=== PATIENT | male | born 1980 | race Caucasian/White ===

== ENCOUNTER 2017-02-08 19:00 | Emergency (ER) | payer OTHER ==
[~2017-02-08] VITALS: Ht 175.2 cm; Wt 124.7 kg
[~2017-02-08 19:00] MED LIST: AMOXICILLIN500 M2 PO; LISINOPRIL10 M1 PO; PREDNICOT20 MG PO; PREDNISONE10 MG PO; PROAIR HFA0.09 MG/AC IH; ROBITUSSIN AC 110 ML PO; VENTOLIN H0.09 MG/AC INH; VIBRAMYCIN100 MG PO
[2017-02-08] MEDS ORDERED: CLARITIN10 MG PO (19:29)
[2017-02-08] MEDS ORDERED: ROBITUSSIN AC 110 ML PO (19:29)
[2017-02-08] MEDS ORDERED: PREDNISONE10 MG PO (19:29)
[2017-02-08] MEDS ORDERED: FLONASE ALLERG9.9 ML NAS (19:29)
== END 2017-02-08 21:29 | disposition home or self-care (01) ==
LOC: ED 19:00
DX: J20.9 Acute bronchitis, unspecified (principal); J45.909 Unspecified asthma, uncomplicated; R03.0 Elevated blood-pressure reading, without diagnosis of hypertension; F17.200 Nicotine dependence, unspecified, uncomplicated

== ENCOUNTER → 2017-03-22 | Outpatient (CLI) | payer OTHER ==
[~2017-03-22] MED LIST changes: +CLARITIN10 MG PO; +FLONASE ALLERG9.9 ML NAS
[2017-03-22 14:28] LABS: BASO # 0.1 10*3/uL (0.0-0.1); BASO % 0.6 % (0.0-1.0); EOS # 0.2 10*3/uL (0.0-0.4); EOS % 2.2 % (1.0-4.0); HEMATOCRIT 43.4 % (42.0-52.0); HEMOGLOBIN 15.3 g/dl (14.0-18.0); LYMPH # 3.2 10*3/uL (1.3-4.4); MEAN CELL VOLUME 84.1 fl (80.0-94.0); MEAN CORPUSCULAR HGB 29.7 pg (27.0-31.0); MEAN CORPUSCULAR HGB CONC 35.3 g/dl (33.0-37.0); MEAN PLATELET VOLUME 9.2 fl (9.6-12.3); MONO # 0.7 10*3/uL (0.1-1.0); MONO % 7.9 % (3.0-9.0); NEUT # 4.5 10*3/uL (2.3-7.9); NEUT % 51.8 % (47.0-73.0); PLATELET COUNT AUTOMATED 259 10*3/uL (130-400); RED BLOOD COUNT 5.16 10*6/uL (4.50-5.90); RED CELL DISTRI WIDTH 12.9 % (0-14.5); WHITE BLOOD COUNT 8.7 10*3/uL (4.8-10.8)
[2017-03-22 15:25] LABS: ALBUMIN 4.1 gm/dl (3.1-4.5); BUN 18 mg/dl (7-24); CHLORIDE 106 mmol/L (98-107); CREATININE 0.95 mg/dL (0.70-1.30); POTASSIUM 3.9 mmol/L (3.5-5.1); SGOT/AST 30 IU/L (3-35); SODIUM 138 mmol/L (136-145)
[2017-03-22 15:36] LABS: ALKALINE PHOSPHATASE 74 U/L (45-117); SGPT/ALT 50 U/L (12-78); TOTAL PROTEIN 7.6 gm/dL (6.4-8.2)
== END | disposition home or self-care (01) ==
LOC: LAB 13:37
PROVIDERS: Physician Assistant
DX: Z51.81 Encounter for therapeutic drug level monitoring (principal); R94.31 Abnormal electrocardiogram [ECG] [EKG]; E55.9 Vitamin D deficiency, unspecified; Z79.899 Other long term (current) drug therapy

== ENCOUNTER 2017-04-11 17:00 | Emergency (ER) | payer OTHER ==
[~2017-04-11] VITALS: Wt 136.1 kg
[2017-04-11] MEDS ORDERED: PREDNISONE10 MG PO (17:32)
[2017-04-11] MEDS ORDERED: FLONASE ALLERG9.9 ML NAS (17:32)
[2017-04-11] MEDS ORDERED: CLARITIN10 MG PO (17:32)
== END 2017-04-11 17:58 | disposition home or self-care (01) ==
LOC: ED 17:00
DX: J02.9 Acute pharyngitis, unspecified (principal); R03.0 Elevated blood-pressure reading, without diagnosis of hypertension; F17.200 Nicotine dependence, unspecified, uncomplicated; Z79.899 Other long term (current) drug therapy

== ENCOUNTER 2017-08-27 11:49 | Emergency (ER) | payer OTHER ==
[~2017-08-27] VITALS: Ht 175.2 cm; Wt 136.1 kg
== END 2017-08-27 13:08 | disposition home or self-care (01) ==
LOC: ED 11:49
DX: S70.11XA Contusion of right thigh, initial encounter (principal); S80.812A Abrasion, left lower leg, initial encounter; Z79.899 Other long term (current) drug therapy; V09.9XXA Pedestrian injured in unspecified transport accident, initial encounter; Y93.01 Activity, walking, marching and hiking; Y92.89 Other specified places as the place of occurrence of the external cause; Y99.9 Unspecified external cause status

== ENCOUNTER 2017-10-25 17:59 | Emergency (ER) | payer OTHER ==
[~2017-10-25] VITALS: Ht 175.2 cm; Wt 136.1 kg
--- NOTE | ~2017-10-25 | EKG ---
[place], [place] ELECTROCARDIOGRAM REPORT NAME: JOSE DE JESUS LUNA UNIT #: [id number] ROOM: DOCTOR: BRIAN FERNANDEZ MD BIRTHDATE: [birth year] DOS: 10/25/2017 TIME: 1849 hours. FINDINGS: 1. Normal sinus rhythm at 95 beats per minute. 2. The tracing is within normal limits. 3. No previous tracing is available for comparison. BRIAN FERNANDEZ MD CM:EKGRPT:ELECTROCARDIOGRAM REPORT [id number] BRIAN FERNANDEZ MD
[2017-10-25] MEDS ORDERED: FLONASE ALLERG9.9 ML NAS (18:18)
[2017-10-25] MEDS ORDERED: ROBITUSSIN DM 105 ML PO (18:18)
[2017-10-25] MEDS ORDERED: CLARITIN10 MG PO (18:18)
[2017-10-25] MEDS ORDERED: PREDNISONE10 MG PO (18:18)
[2017-10-25 18:22] LABS: BASO # 0.1 10*3/uL (0.0-0.1); BASO % 0.5 % (0.0-1.0); EOS # 0.2 10*3/uL (0.0-0.4); EOS % 1.8 % (1.0-4.0); HEMOGLOBIN 13.8 g/dl (14.0-18.0); LYMPH # 3.1 10*3/uL (1.3-4.4); LYMPH % 28.4 % (27.0-41.0); MEAN CORPUSCULAR HGB 29.7 pg (27.0-31.0); MEAN CORPUSCULAR HGB CONC 34.5 g/dl (33.0-37.0); MONO # 0.5 10*3/uL (0.1-1.0); MONO % 4.9 % (3.0-9.0); NEUT # 6.9 10*3/uL (2.3-7.9); PLATELET COUNT AUTOMATED 286 10*3/uL (130-400); RED BLOOD COUNT 4.65 10*6/uL (4.50-5.90); RED CELL DISTRI WIDTH 13.2 % (0-14.5)
[2017-10-25 18:40] LABS: ALBUMIN 3.7 gm/dl (3.1-4.5); ALKALINE PHOSPHATASE 82 U/L (45-117); BUN 13 mg/dl (7-24); CHLORIDE 109 mmol/L (98-107); CREATININE 1.08 mg/dL (0.70-1.30); POTASSIUM 3.9 mmol/L (3.5-5.1); SGOT/AST 30 IU/L (3-35); SGPT/ALT 48 U/L (12-78); SODIUM 142 mmol/L (136-145); TOTAL PROTEIN 7.3 gm/dL (6.4-8.2)
[2017-10-25 18:41] LABS: TROPONIN I < 0.015 ng/ml (<0.045)
== END 2017-10-25 19:06 | disposition home or self-care (01) ==
LOC: ED 17:59
PROVIDERS: Nurse Practitioner Family
DX: J20.9 Acute bronchitis, unspecified (principal); R03.0 Elevated blood-pressure reading, without diagnosis of hypertension; F17.200 Nicotine dependence, unspecified, uncomplicated; J45.909 Unspecified asthma, uncomplicated

== ENCOUNTER 2020-02-19 22:56 | Emergency (ER) | payer OTHER ==
[~2020-02-19] VITALS: Ht 175.2 cm; Wt 136.1 kg
[~2020-02-19 22:56] MED LIST changes: +ROBITUSSIN DM 105 ML PO
[2020-02-20 00:31] LABS: BILIRUBIN NEGATIVE; BLOOD NEGATIVE (NEGATIVE); CLARITY CLEAR (CLEAR); COLOR YELLOW (YELLOW); GLUCOSE NEGATIVE; KETONE NEGATIVE; LEUKO ESTERASE NEGATIVE (NEGATIVE); NITRITE NEGATIVE (NEGATIVE); PH 6.5 (4.5-8.0); SPECIFIC GRAVITY 1.025 (1.001-1.030)
[2020-02-20 00:33] LABS: BACTERIA TRACE; EPITHELIAL CELLS 0-2; MUCOUS 2+; RBC 0-2 rbc/hpf (0-2); WBC 0-2 wbc/hpf (0-5)
[2020-02-20] MEDS ORDERED: Motrin,Rufen800 MG PO (00:52)
== END 2020-02-20 01:01 | disposition home or self-care (01) ==
LOC: ED 22:56
PROVIDERS: Physician Assistant
DX: R10.9 Unspecified abdominal pain (principal); J45.909 Unspecified asthma, uncomplicated; F32.9 Major depressive disorder, single episode, unspecified; Z79.899 Other long term (current) drug therapy

== ENCOUNTER 2020-02-24 14:50 | Emergency (ER) | payer OTHER ==
[~2020-02-24] VITALS: Ht 175.2 cm; Wt 136.1 kg
[~2020-02-24 14:50] MED LIST changes: +Motrin,Rufen800 MG PO
[2020-02-24 16:30] LABS: BILIRUBIN NEGATIVE; BLOOD NEGATIVE (NEGATIVE); CLARITY CLEAR (CLEAR); COLOR YELLOW (YELLOW); GLUCOSE NEGATIVE; KETONE NEGATIVE; SPECIFIC GRAVITY > 1.030 (1.001-1.030)
[2020-02-24 16:31] LABS: LEUKO ESTERASE NEGATIVE (NEGATIVE); NITRITE NEGATIVE (NEGATIVE); PH 5.5 (4.5-8.0)
[2020-02-24 16:37] LABS: BACTERIA TRACE; EPITHELIAL CELLS 0-2; MUCOUS TRACE; RBC 0-2 rbc/hpf (0-2); WBC 0-2 wbc/hpf (0-5)
== END 2020-02-24 18:53 | disposition home or self-care (01) ==
LOC: ED 14:50
PROVIDERS: Emergency Medicine
DX: R10.32 Left lower quadrant pain (principal); R11.10 Vomiting, unspecified